=== PATIENT | female | born 2005 ===

== ENCOUNTER 2025-04-09 09:59 | Outpatient (AMB) | payer MEDICAID, SELFPAY ==
[2025-04-09 10:18] VITALS: BP 112/68; PULSE 101; RESP 20; TEMP 36.5; O2SAT 97; BMI 23.3
--- NOTE | 2025-04-09 10:18 | OBCLNT_ITS ---
Vital Signs 04/09/25 10:18 Height 1.6 m Height Method Stated Weight 59.931 kg Weight Measurement Method Standing Scale BMI 23.3 BP 112/68 Blood Pressure Source Automatic Cuff Blood Pressure Location Left Upper Arm Position Sitting Respiration 20 Pulse 101 H Pulse Source Monitor Temp 97.7 F Temp Source Oral Pulse Oximetry (%) 97 Oxygen Delivery Method Room Air Allergies/Home Meds Allergies & Medications Allergies No Known Allergies Allergy (Verified 04/09/25 10:20) Medication Reconciliation No Known Home Medications 04/09/25 [History Confirmed 04/09/25] Intake Visit Data Collection New Patient or Established: New Patient (never been to [facility]) Reason for Visit:: Transfer of care, unsure last menstrual period Seen by Clinical Staff ONLY (RN/MA): No Filter Tank Tender Helper Head Required: No Do You Feel Safe at Home: Yes Authorities Contacted: N/A PCP or OBGYN visit in last 3 months: Yes Hx Now: Yes Are you currently on any form of Control: No Pain Present Currently: No Pain Scale Used: Tripp-Baires/Numerical Pain scale:: 0 Smoking Status Smoking Status: Never smoker Questionnaires Covid-19 Vaccine Questionnaire Has patient been vacinated for Covid-19 Have you been vacinated for Covid-19: Yes PHQ-9 PHQ-2 Over the last 2 weeks, how often have you been bothered by any of the following problems? 1. Little interest or pleasure in doing things: not at all 2. Feeling down, depressed, or hopeless: not at all Total score: 0 PHQ-9 3. Trouble falling or staying asleep, or sleeping too much: Not at all 4. Feeling tired or having little energy: Not at all 5. Poor appetite or overeating: Not at all 6. Feeling bad about yourself - or that you are a failure or have let yourself or your family down: Not at all 7. Trouble concentrating on things, such as reading the newspaper or watching television: Not at all 8. Moving or speaking so slowly that other people could have noticed? - Or the opposite - being so fidgety or restless that you have been moving around a lot more than usual: not at all 9. Thoughts that you would be better off or of hurting yourself in some way: Not at all Total score: 0 Source: Developed by Drs. David Ware, Jana Christensen, Krish King and colleagues, with an educational kerrie from [employer]. Depression screen completed yes Social History Living Situation History Marital Status: Single Lives With: Family Housing: Apartment Tobacco History Smoking Status: Never smoker Second Hand Smoke Exposure: No Alcohol History Alcohol Intake: Never Domestic Abuse History Do You Feel Safe at Home: Yes History of Present Illness HPI Narrative Daniella Richey is a 19-year-old female transferring care from [facility] for ongoing care. She reports an unsure last menstrual period and is currently with a female fetus. The patient's is progressing without significant complications. She denies experiencing any contractions but mentions having [place] Urena contractions that resolve with position changes. Her previous resulted in a full-term vaginal delivery at 38 weeks without any reported problems. An ultrasound performed during the visit revealed that the fetus is in a breech presentation. The patient was informed about the implications of this finding, including the potential need for a section if the fetus remains in this position. She was advised that a repeat ultrasound would be performed at 39 weeks to reassess position. The patient reports no other specific complaints or concerns related to her at this time. She appears to be adhering to her care regimen, including taking vitamins. Obstetric History - GTPAL: A1 L1 - Current : - Estimated due date: May 30, 2025 (per Dr. Maciel) - Fetus measuring approximately 1 week ahead of dates - Breech presentation noted on current ultrasound - history: - Previous vaginal delivery at 38 weeks gestation, no reported complications Surgical History - Vaginal delivery (previous ) Medications and Supplements - vitamins Immunizations - Rubella: Patient is reported as immune Social History - Obstetric History: , history of one miscarriage and one previous vaginal delivery Review of Systems Musculoskeletal: Positive for [place] Urena contractions that resolve with position change. OB Ultrasound OB Ultrasound Ultrasound technique: transabdominal OB Initial Visit OB Flowsheet OB Flowsheet Initial Weight: Not Recorded Date -?-?-?-?-?-?-?-?-?-?-?-?- EGA Weight BP Alb Glu CTX Pres Fundal ht FHR Mov Dilation Station Effacement Hx Notes Visit Note 04/09/25 -?-?-?-?-?-?-?-?-?-?-?-?- 32w 5d 59.931 kg 112/68 Daniella Richey, 19 y/o , presents for transfer of care at ~35 weeks gestation. LMP is uncertain; [facility] 05/30/2025 per philomena or US. progressing without major complications. Reports [place] Urena contractions that resolve with position change. movement reassuring. Prior was a full-term vaginal delivery at 38 weeks. Current ultrasound confirms breech presentation (footling), and fetus is measuring about 1 week ahead. No contractions or other concerns today. Labs notable for mild anemia and asymptomatic bacteriuria. Maternity 21 negative for aneuploidy; fetus is female. Plan: Schedule for 39 weeks Repeat ultrasound on admission to confir m position If spontaneous version occurs, consider vaginal delivery ECV not recommended; discussed risks/michelle efits with patient Continue vitamins Reassess mild anemia (Hgb 10.7) at next visit Review urine culture sensitivity for coa gulase-negative staph; determine treatment need based on colony count and symptoms Follow up in 2 weeks for continued monit oring and pre-op planning Daniella Richey, 19 y/o 1, presents for transfer of care at ~32 weeks gestation. LMP is uncertain; [facility] 05/30/2025 per prior US. progressing without major complications. Reports [place] Urena contractions that resolve with position change. movement reassuring. Prior was a full-term vaginal delivery at 38 weeks. Current ultrasound confirms breech presentation (footling), and fetus is measuring about 1 week ahead. No contractions or other concerns today. Labs notable for mild anemia and asymptomatic bacteriuria. Maternity 21 negative for aneuploidy; fetus is female. Plan: Schedule for 39 weeks Repeat ultrasound on admission to confir m position If spontaneous version occurs, consider vaginal delivery ECV not recommended; discussed risks/michelle efits with patient Continue vitamins Reassess mild anemia (Hgb 10.7) at next visit Review urine culture sensitivity for coa gulase-negative staph; determine treatment need based on colony count and symptoms Follow up in 2 weeks for continued monitoring and pre-op bal nning Menstrual History Menstrual reliability: approximate (month known) Flow: normal Menstrual regularity: regular Monthly: Yes Age at menarche: 10 On control pills at conception: No Associated symptoms (LMP): Reports breast tenderness OB History : 2 Para: 1 # of Living Children: 1 Delivery History 1st : Child's name: BUTCH date: 08/06/23 sex: male Delivery type: vaginal Delivery complications: NONE History of depression before or after : No Infection History & Risk Evaluation History of STDs: none Genetic Screening & History Genetic Screening/Teratology Counseling - Includes patient, baby's father, or anyone in either family with: 1. Patient's age 35 years or older as of estimated date of delivery: No 2. Thalassemia (Wolof, Austrian, Mediterranean, or Background); MCV less than 80: No 3. Neural Tube Defect (Meningomyelocele, Spina Bifida, or Anencephaly): No 4. Congenital Heart Defect: No 5. Down Syndrome: No 6. Jett-Sachs (Ashkenazi Yarsanism, Cajun, Icelandic Snook): No 7. Kacey Disease (Ashkenazi Yarsanism): No 8. Familial Dysautonomia (Ashkenazi Yarsanism): No 9. Sickle Cell Disease or Trait (): No 10. Hemophilia or other blood disorders: No 11. Muscular Dystrophy: No 12. Cystic Fibrosis: No 13. Bollinger's Chorea: No 14. Mental Retardation/Autism: No 15. Other inherited genetic or chromosomal disorder: No 16. Maternal Metabolic Disorder (EG,TYPE 1 Diabetes, PKU): No 17. Patient or baby's father had a child with defects not listed above: No 18. Recurrent loss or a stillbirth: No 19. Medications (including supplements, vitamins, herbs or otc drugs)/illicit/recreational drugs/alcohol since last menstrual period: No 20. Any other: No Infection History 1. Live with someone with TB or exposed to TB: No 2. Rash or viral illness since last menstrual period: No 3. Hepatitis B,C: No Other (see comments) Source: [employer] Exam Narrative Physical exam: Abdomen: Ultrasound performed. Fetus visualized with foot at the bottom, knees visible, and hand identified. position consistent with breech presentation. Results Objective Laboratory: Laboratory, Imaging, and Diagnostic Test Results - Date: 04/01/2025 - Urine culture: Coagulase-negative staphylococcus (with sensitivity list) - Urinalysis: 3+ WBC esters, negative nitrites - CBC: Hemoglobin 10.7 g/dL, Hematocrit 33.3%, Platelets 307,000 - Gonorrhea and chlamydia: Negative - RPR: Non-reactive - 1-hour glucose tolerance test: 111 mg/dL - SMA testing: Negative - Cystic fibrosis genetic screening: Negative - Maternity 21: Negative for trisomy 21, 18, 13 - gender: Female - fraction: 23% - Rubella: Immune - Hemoglobin A1c: 5.0% - Blood group: O-positive - Hepatitis B: Negative - Hepatitis C: Negative - Ultrasound (current visit): - position: Breech (foot at bottom, knees visible, hand visible) Office Procedures OB Clinic LOC & Office Proc's Nursing/Assessment Patient Status: Initial/New Patient OB Clinic Nursing Assessment: Medication Reconciliation, Update PMH in EMR and Vital Signs OB Clinic Coordination of Care: Complex Care and Chronic Disease 1-5, Consent,records obtained, informed consent, Education Simp Pt/Fam, Lab and Imaging orders, Results/Orders obtained and Staff clarify orders Special Needs: Heart tones Miscellaneous Interventions: Blood/Urine Collection New Patient Charge New Patient Point Assignment: [id number] New Patient Point Charge: AUTOMOTIVE PRODUCTION WORKER Level 5 ([id number]) Bedside Ultrasounds US Transabdominal <14 weeks at bedside: Yes Assessment & Plan Diagnosis / Problem List (1) Supervision of high risk , unspecified, third trimester: Status: Acute (2) Breech position of fetus: Status: Acute Plan Daniella Richey, 19-year-old , transferring care at approximately 35 weeks gestation with breech presentation. Breech presentation at term Assessment: Ultrasound examination during the visit confirmed breech presentation with the fetus in a bottom-down position. The patient reports no significant contractions or issues, only occasional [place] Urena contractions that resolve with position changes. Previous resulted in a full-term vaginal delivery at 38 weeks without complications. Plan: - Schedule at 39 weeks gestation - Perform repeat ultrasound on admission for to confirm presentation - If spontaneous version occurs, proceed with vaginal delivery - Discuss risks, benefits, and alternatives of external cephalic version (ECV) with patient - ECV not recommended due to associated risks - Follow up in 2 weeks Anemia Assessment: Recent CBC shows hemoglobin of 10.7 g/dL and hematocrit of 33.3%, in dicating mild anemia. Plan: - Continue vitamins - Reassess at next visit Asymptomatic bacteriuria Assessment: Urine culture from 04/01/2025 positive for coagulase-negative staphylococcus. Urinalysis showed 3+ WBC esterase but negative nitrites. Plan: - Review antibiotic sensitivity results - Determine need for treatment based on colony count and symptoms - Follow up on urine culture results at next visit
[2025-04-09 16:09] LABS: Bilirubin,Urine Clinitek Negative (Negative); Blood,Urine Clinitek Negative (Negative); Glucose, Urine Clinitek Negative (Negative); Ketones,Urine Clinitek Negative (Negative); Leukocyte Esterase,Urine Clin 1+ (Negative); Nitrite,Urine Clinitek Negative (Negative); Protein,Urine Clinitek Trace (Neg - Trace); Specific Gravity,Urine Clin 1.025 (1.001-1.030)
== END 2025-04-09 10:36 | disposition home or self-care (01) ==
LOC: HODSOBC 09:59
PROVIDERS: Advanced Practice Midwife; Supervising Provider Obstetrics & Gynecology; Visit Provider Obstetrics & Gynecology
DX: O09.893 Supervision of other high risk pregnancies, third trimester (principal); Z3A.32 32 weeks gestation of pregnancy; O32.8XX0 Maternal care for other malpresentation of fetus, not applicable or unspecified; O09.293 Supervision of pregnancy with other poor reproductive or obstetric history, third trimester; O99.013 Anemia complicating pregnancy, third trimester; O47.03 False labor before 37 completed weeks of gestation, third trimester
CPT/HCPCS: 76801; 81001; 99205; G0463

== ENCOUNTER 2025-04-24 10:02 | Outpatient (AMB) | payer MEDICAID, SELFPAY ==
[2025-04-24 10:39] VITALS: BP 101/62; PULSE 91; RESP 18; TEMP 36.6; O2SAT 98; BMI 23.9
--- NOTE | 2025-04-24 10:39 | OBCLNT_ITS ---
Vital Signs 04/24/25 10:39 Height 1.6 m Height Method Stated Weight 61.348 kg Weight Measurement Method Standing Scale BMI 23.9 BP 101/62 Blood Pressure Source Automatic Cuff Blood Pressure Location Right Upper Arm Position Sitting Respiration 18 Pulse 91 Pulse Source Monitor Temp 97.9 F Temp Source Oral Pulse Oximetry (%) 98 Oxygen Delivery Method Room Air Allergies/Home Meds Allergies & Medications Allergies No Known Allergies Allergy (Verified 04/24/25 10:42) Medication Reconciliation No Known Home Medications 04/09/25 [History Confirmed 04/24/25] Intake Visit Data Collection New Patient or Established: Established Patient (seen at [facility] within 3 years) Reason for Visit:: CARE Seen by Clinical Staff ONLY (RN/MA): No Video Effects Editor Required: No Do You Feel Safe at Home: Yes Authorities Contacted: N/A PCP or OBGYN visit in last 3 months: Yes Hx Now: Yes Are you currently on any form of Control: No Pain Present Currently: Yes Pain Location: Abdomen Pain Scale Used: Tripp-Baires/Numerical Pain scale:: 4 Smoking Status Smoking Status: Never smoker Questionnaires Covid-19 Vaccine Questionnaire Has patient been vacinated for Covid-19 Have you been vacinated for Covid-19: Yes PHQ-9 PHQ-2 Over the last 2 weeks, how often have you been bothered by any of the following problems? 1. Little interest or pleasure in doing things: not at all 2. Feeling down, depressed, or hopeless: not at all Total score: 0 PHQ-9 3. Trouble falling or staying asleep, or sleeping too much: Not at all 4. Feeling tired or having little energy: Not at all 5. Poor appetite or overeating: Not at all 6. Feeling bad about yourself - or that you are a failure or have let yourself or your family down: Not at all 7. Trouble concentrating on things, such as reading the newspaper or watching television: Not at all 8. Moving or speaking so slowly that other people could have noticed? - Or the opposite - being so fidgety or restless that you have been moving around a lot more than usual: not at all 9. Thoughts that you would be better off or of hurting yourself in some way: Not at all Total score: 0 Source: Developed by Drs. David Ware, Jana Christensen, Krish King and colleagues, with an educational kerrie from [employer]. Depression screen completed yes Social History Living Situation History Lives With: Family Housing: Apartment Tobacco History Smoking Status: Never smoker Second Hand Smoke Exposure: No Alcohol History Alcohol Intake: Never Domestic Abuse History Do You Feel Safe at Home: Yes Care OB Visit Log OB Flowsheet Initial Weight: Not Recorded Date -?-?-?-?-?-?-?-?-?-?-?-?- EGA Weight BP Alb Glu CTX Pres Fundal ht FHR Mov Dilation Station Effacement Hx Notes Visit Note 04/09/25 -?-?-?-?-?-?-?-?-?-?-?-?- 32w 5d 59.931 kg 112/68 Daniella Richey, 19 y/o , presents for transfer of care at ~35 weeks gestation. LMP is uncertain; [facility] 05/30/2025 per prior US. progressing without major complications. Reports [place] Urena contractions that resolve with position change. movement reassuring. Prior was a full-term vaginal delivery at 38 weeks. Current ultrasound confirms breech presentation (footling), and fetus is measuring about 1 week ahead. No contractions or other concerns today. Labs notable for mild anemia and asymptomatic bacteriuria. Maternity 21 negative for aneuploidy; fetus is female. Plan: Schedule for 39 weeks Repeat ultrasound on admission to confir m position If spontaneous version occurs, consider vaginal delivery ECV not recommended; discussed risks/michelle efits with patient Continue vitamins Reassess mild anemia (Hgb 10.7) at next visit Review urine culture sensitivity for coa gulase-negative staph; determine treatment need based on colony count and symptoms Follow up in 2 weeks for continued monit oring and pre-op planning Daniella Richey, 19 y/o 1, presents for transfer of care at ~32 weeks gestation. LMP is uncertain; [facility] 05/30/2025 per prior US. progressing without major complications. Reports [place] Urena contractions that resolve with position change. movement reassuring. Prior was a full-term vaginal delivery at 38 weeks. Current ultrasound confirms breech presentation (footling), and fetus is measuring about 1 week ahead. No contractions or other concerns today. Labs notable for mild anemia and asymptomatic bacteriuria. Maternity 21 negative for aneuploidy; fetus is female. Plan: Schedule for 39 weeks Repeat ultrasound on admission to confir m position If spontaneous version occurs, consider vaginal delivery ECV not recommended; discussed risks/michelle efits with patient Continue vitamins Reassess mild anemia (Hgb 10.7) at next visit Review urine culture sensitivity for coa gulase-negative staph; determine treatment need based on colony count and symptoms Follow up in 2 weeks for continued monitoring and pre-op bal nning 04/24/25 -?-?-?-?-?-?-?-?-?-?-?-?- 34w 6d 61.348 kg 101/62 absent breech 34 135 active fetus active. denies PTL complaints, no leaking or bleeding discuss breech exercise, ptl precaution reviewed, increase fluid,continue pnv, rtc 1 week with OB [facility] Calculator Estimated Delivery Date Method Current WG Current Estimate 05/30/25 LMP (Uncertain) 34w 6d Notes Visit Date: 04/24/25 Last Updated by: Anna Ellis, BRENT O+,abs-, rpr;;Nr, rub imm, hbsag-,hiv-,GC/CT-. UT-, AFP/NIPT,carrier screen-. 3rd tri labs wnl Office Procedures OB Clinic LOC & Office Proc's Nursing/Assessment Patient Status: Established Patient OB Clinic Nursing Assessment: Medication Reconciliation, Update PMH in EMR and Vital Signs OB Clinic Coordination of Care: Complex Care and Chronic Disease 1-5, Consent,records obtained, informed consent, Education Simp Pt/Fam, Lab and Imaging orders, Results/Orders obtained and Staff clarify orders Special Needs: Heart tones Established Patient Charge Established Patient Point Assignment: 135 Established Patient Point Charge: EP Level 4 (120-155) Assessment & Plan Diagnosis / Problem List (1) Supervision of high risk , unspecified, third trimester: Status: Acute (2) Breech position of fetus: Status: Acute Plan discuss breech exercise; review ptl ptrcaution, increase fluid, continue PNV, d iscuss ER precaution, rtc 2 week with OB Additional Plan Follow Up: 2 Weeks (obc)
== END 2025-04-24 10:59 | disposition home or self-care (01) ==
LOC: HODSOBC 10:02
PROVIDERS: Supervising Provider Advanced Practice Midwife; Visit Provider Advanced Practice Midwife
DX: O09.893 Supervision of other high risk pregnancies, third trimester (principal); Z3A.34 34 weeks gestation of pregnancy; O32.8XX0 Maternal care for other malpresentation of fetus, not applicable or unspecified
CPT/HCPCS: 99214; G0463

== ENCOUNTER 2025-05-02 09:47 | Outpatient (AMB) | payer MEDICAID, SELFPAY ==
[2025-05-02 10:08] VITALS: BP 108/68; PULSE 91; RESP 18; TEMP 36.6; O2SAT 97; BMI 24.1
--- NOTE | 2025-05-02 10:08 | OBCLNT_ITS ---
Vital Signs 05/02/25 10:08 Height 1.6 m Height Method Stated Weight 61.859 kg Weight Measurement Method Standing Scale BMI 24.1 BP 108/68 Blood Pressure Source Automatic Cuff Blood Pressure Location Right Upper Arm Position Sitting Respiration 18 Pulse 91 Pulse Source Monitor Temp 97.9 F Temp Source Oral Pulse Oximetry (%) 97 Oxygen Delivery Method Room Air Allergies/Home Meds Allergies & Medications Allergies No Known Allergies Allergy (Verified 05/02/25 10:09) Medication Reconciliation No Known Home Medications 04/09/25 [History Confirmed 05/02/25] Intake Visit Data Collection New Patient or Established: Established Patient (seen at [facility] within 3 years) Reason for Visit:: CARE Seen by Clinical Staff ONLY (RN/MA): No Photography Intern Required: No Do You Feel Safe at Home: Yes Authorities Contacted: N/A PCP or OBGYN visit in last 3 months: Yes Hx Now: Yes Are you currently on any form of Control: No Pain Present Currently: No Pain Scale Used: Tripp-Baires/Numerical Pain scale:: 0 Smoking Status Smoking Status: Never smoker Questionnaires Covid-19 Vaccine Questionnaire Has patient been vacinated for Covid-19 Have you been vacinated for Covid-19: Yes PHQ-9 PHQ-2 Over the last 2 weeks, how often have you been bothered by any of the following problems? 1. Little interest or pleasure in doing things: not at all 2. Feeling down, depressed, or hopeless: not at all Total score: 0 PHQ-9 3. Trouble falling or staying asleep, or sleeping too much: Not at all 4. Feeling tired or having little energy: Not at all 5. Poor appetite or overeating: Not at all 6. Feeling bad about yourself - or that you are a failure or have let yourself or your family down: Not at all 7. Trouble concentrating on things, such as reading the newspaper or watching television: Not at all 8. Moving or speaking so slowly that other people could have noticed? - Or the opposite - being so fidgety or restless that you have been moving around a lot more than usual: not at all 9. Thoughts that you would be better off or of hurting yourself in some way: Not at all Total score: 0 Source: Developed by Drs. David Ware, Jana Christensen, Krish King and colleagues, with an educational kerrie from [employer]. Depression screen completed yes Social History Living Situation History Lives With: Family Housing: Apartment Tobacco History Smoking Status: Never smoker Second Hand Smoke Exposure: No Alcohol History Alcohol Intake: Never Domestic Abuse History Do You Feel Safe at Home: Yes Care OB Visit Log OB Flowsheet Initial Weight: Not Recorded Date -?-?-?-?-?-?-?-?-?-?-?-?- EGA Weight BP Alb Glu CTX Pres Fundal ht FHR Mov Dilation Station Effacement Hx Notes Visit Note 04/09/25 -?-?-?-?-?-?-?-?-?-?-?-?- 32w 5d 59.931 kg 112/68 Daniella Richey, 19 y/o , presents for transfer of care at ~35 weeks gestation. LMP is uncertain; [facility] 05/30/2025 per prior US. progressing without major complications. Reports [place] Urena contractions that resolve with position change. movement reassuring. Prior was a full-term vaginal delivery at 38 weeks. Current ultrasound confirms breech presentation (footling), and fetus is measuring about 1 week ahead. No contractions or other concerns today. Labs notable for mild anemia and asymptomatic bacteriuria. Maternity 21 negative for aneuploidy; fetus is female. Plan: Schedule for 39 weeks Repeat ultrasound on admission to confir m position If spontaneous version occurs, consider vaginal delivery ECV not recommended; discussed risks/michelle efits with patient Continue vitamins Reassess mild anemia (Hgb 10.7) at next visit Review urine culture sensitivity for coa gulase-negative staph; determine treatment need based on colony count and symptoms Follow up in 2 weeks for continued monit oring and pre-op planning Daniella Richey, 19 y/o 1, presents for transfer of care at ~32 weeks gestation. LMP is uncertain; [facility] 05/30/2025 per prior US. progressing without major complications. Reports [place] Urena contractions that resolve with position change. movement reassuring. Prior was a full-term vaginal delivery at 38 weeks. Current ultrasound confirms breech presentation (footling), and fetus is measuring about 1 week ahead. No contractions or other concerns today. Labs notable for mild anemia and asymptomatic bacteriuria. Maternity 21 negative for aneuploidy; fetus is female. Plan: Schedule for 39 weeks Repeat ultrasound on admission to confir m position If spontaneous version occurs, consider vaginal delivery ECV not recommended; discussed risks/michelle efits with patient Continue vitamins Reassess mild anemia (Hgb 10.7) at next visit Review urine culture sensitivity for coa gulase-negative staph; determine treatment need based on colony count and symptoms Follow up in 2 weeks for continued monitoring and pre-op bal nning 04/24/25 -?-?-?-?-?-?-?-?-?-?-?-?- 34w 6d 61.348 kg 101/62 absent breech 34 135 active fetus active. denies PTL complaints, no leaking or bleeding discuss breech exercise, ptl precaution reviewed, increase fluid,continue pnv, rtc 1 week with OB 05/02/25 -?-?-?-?-?-?-?-?-?-?-?-?- 36w 0d 61.859 kg 108/68 absent cephalic 35 133 active increased FM, denies LOF, vag bleeding, no cramps tod ay vertex on scan, continue breech exercise, hydrate, ptl precaution, fkc bid, GBS today,rtc 1 week [facility] Calculator Estimated Delivery Date Method Current WG Current Estimate 05/30/25 LMP (Uncertain) 36w 0d Notes Visit Date: 04/24/25 Last Updated by: Anna Ellis CNM O+,abs-, rpr;;Nr, rub imm, hbsag-,hiv-,GC/CT-. UT-, AFP/NIPT,carrier screen-. 3rd tri labs wnl Office Procedures OB Clinic LOC & Office Proc's Nursing/Assessment Patient Status: Established Patient OB Clinic Nursing Assessment: Medication Reconciliation, Update PMH in EMR and Vital Signs OB Clinic Coordination of Care: Complex Care and Chronic Disease 1-5, Consent,records obtained, informed consent, Education Simp Pt/Fam, Lab and Imaging orders, Results/Orders obtained and Staff clarify orders Special Needs: Heart tones Established Patient Charge Established Patient Point Assignment: 135 Established Patient Point Charge: EP Level 4 (120-155) Assessment & Plan Diagnosis / Problem List (1) Supervision of high risk , unspecified, third trimester: Status: Acute Plan GBS today. discuss labor precaution, fkc bid, hydrate. f/u MFM sono 05/30/25rtc 1 week obc Additional Plan Follow Up: 1 Week (obc)
== END 2025-05-02 11:22 | disposition home or self-care (01) ==
LOC: HODSOBC 09:47
PROVIDERS: Supervising Provider Advanced Practice Midwife; Visit Provider Advanced Practice Midwife
DX: O09.93 Supervision of high risk pregnancy, unspecified, third trimester (principal); Z3A.36 36 weeks gestation of pregnancy; Z36.85 Encounter for antenatal screening for Streptococcus B
CPT/HCPCS: 99214; G0463

== ENCOUNTER 2025-05-09 10:42 | Outpatient (AMB) | payer MEDICAID, SELFPAY ==
[2025-05-09 11:26] VITALS: BP 112/71; PULSE 110; RESP 19; TEMP 36.6; O2SAT 98; BMI 24.8
--- NOTE | 2025-05-09 11:26 | OBCLNT_ITS ---
Vital Signs 05/09/25 11:26 Height 1.6 m Height Method Stated Weight 63.56 kg Weight Measurement Method Standing Scale BMI 24.8 BP 112/71 Blood Pressure Source Automatic Cuff Blood Pressure Location Right Upper Arm Position Sitting Respiration 19 Pulse 110 H Pulse Source Monitor Temp 97.8 F Temp Source Temporal Artery Scan Pulse Oximetry (%) 98 Oxygen Delivery Method Room Air Allergies/Home Meds Allergies & Medications Allergies No Known Allergies Allergy (Verified 05/02/25 10:09) Intake Visit Data Collection New Patient or Established: Established Patient (seen at [facility] within 3 years) Reason for Visit:: FOLLOW UP OBC Do You Feel Safe at Home: Yes Authorities Contacted: N/A PCP or OBGYN visit in last 3 months: Yes Date of Last PCP or OBGYN visit: 05/02/25 Hx Now: Yes Are you currently on any form of Control: No Pain Present Currently: No Smoking Status Smoking Status: Never smoker Questionnaires PHQ-9 PHQ-2 Over the last 2 weeks, how often have you been bothered by any of the following problems? 1. Little interest or pleasure in doing things: not at all PHQ-9 8. Moving or speaking so slowly that other people could have noticed? - Or the opposite - being so fidgety or restless that you have been moving around a lot more than usual: not at all Source: Developed by Drs. David Ware, Jana Christensen, rKish King and colleagues, with an educational kerrie from [employer]. Social History Living Situation History Lives With: Family Housing: Apartment Tobacco History Smoking Status: Never smoker Second Hand Smoke Exposure: No Alcohol History Alcohol Intake: Never Domestic Abuse History Do You Feel Safe at Home: Yes Care OB Visit Log OB Flowsheet Initial Weight: Not Recorded Date -?-?-?-?-?-?-?-?-?-?-?-?- EGA Weight BP Alb Glu CTX Pres Fundal ht FHR Mov Dilation Station Effacement Hx Notes Visit Note 04/09/25 -?-?-?-?-?-?-?-?-?-?-?-?- 32w 5d 59.931 kg 112/68 Daniella Richey, 19 y/o , presents for transfer of care at ~35 weeks gestation. LMP is uncertain; [facility] 05/30/2025 per prior US. progressing without major complications. Reports [place] Urena contractions that resolve with position change. movement reassuring. Prior was a full-term vaginal delivery at 38 weeks. Current ultrasound confirms breech presentation (footling), and fetus is measuring about 1 week ahead. No contractions or other concerns today. Labs notable for mild anemia and asymptomatic bacteriuria. Maternity 21 negative for aneuploidy; fetus is female. Plan: Schedule for 39 weeks Repeat ultrasound on admission to confir m position If spontaneous version occurs, consider vaginal delivery ECV not recommended; discussed risks/michelle efits with patient Continue vitamins Reassess mild anemia (Hgb 10.7) at next visit Review urine culture sensitivity for coa gulase-negative staph; determine treatment need based on colony count and symptoms Follow up in 2 weeks for continued monit oring and pre-op planning Daniella Richey, 19 y/o 1, presents for transfer of care at ~32 weeks gestation. LMP is uncertain; [facility] 05/30/2025 per prior US. progressing without major complications. Reports Ivan Urena contractions that resolve with position change. movement reassuring. Prior was a full-term vaginal delivery at 38 weeks. Current ultrasound confirms breech presentation (footling), and fetus is measuring about 1 week ahead. No contractions or other concerns today. Labs notable for mild anemia and asymptomatic bacteriuria. Maternity 21 negative for aneuploidy; fetus is female. Plan: Schedule for 39 weeks Repeat ultrasound on admission to confir m position If spontaneous version occurs, consider vaginal delivery ECV not recommended; discussed risks/michelle efits with patient Continue vitamins Reassess mild anemia (Hgb 10.7) at next visit Review urine culture sensitivity for coa gulase-negative staph; determine tr eatment need based on colony count and symptoms Follow up in 2 weeks for continued monitoring and pre-op bal nning 04/24/25 -?-?-?-?-?-?-?-?-?-?-?-?- 34w 6d 61.348 kg 101/62 absent breech 34 135 active fetus active. denies PTL complaints, no leaking or bleeding discuss breech exercise, ptl precaution reviewed, increase fluid,continue pnv, rtc 1 week with OB 05/02/25 -?-?-?-?-?-?-?-?-?-?-?-?- 36w 0d 61.859 kg 108/68 absent cephalic 35 133 active increased FM, denies LOF, vag bleeding, no cramps tod ay vertex on scan, continue breech exercise, hydrate, ptl precaution, fkc bid, GBS today,rtc 1 week 05/09/25 -?-?-?-?-?-?-?-?-?-?-?-?- 37w 0d 63.56 kg 112/71 absent cephalic 36 140 active reports good movement, denies leaking or vaginal bleeding, occ uc, lost mucous plug discuss labor precaution, fkc bid, comfort measure for early labor. discuss ER precaution., rtc 1 week, GBS result pending [facility] Calculator Estimated Delivery Date Method Current WG Current Estimate 05/30/25 LMP (Uncertain) 37w 0d Notes Visit Date: 05/09/25 Last Updated by: Anna Ellis CNM GBS- Visit Date: 04/24/25 Last Updated by: Anna Ellis CNM O+,abs-, rpr;;Nr, rub imm, hbsag-,hiv-,GC/CT-. UT-, AFP/NIPT,carrier screen-. 3rd tri labs wnl Office Procedures OB Clinic LOC & Office Proc's Nursing/Assessment Patient Status: Established Patient OB Clinic Nursing Assessment: BP Monitoring, Medication Reconciliation, Update PMH in EMR and Vital Signs OB Clinic Coordination of Care: Complex Care and Chronic Disease 1-5, Consent,records obtained, informed consent, Lab and Imaging orders and Results/Orders obtained Special Needs: Heart tones Established Patient Charge Established Patient Point Assignment: 125 Established Patient Point Charge: EP Level 4 (120-155) Assessment & Plan Diagnosis / Problem List (1) Supervision of high risk , unspecified, third trimester: Status: Acute Plan GBS- discuss labor precaution, fkc bid. comfort measure, increase fluid. obc 1 week Additional Plan Follow Up: 1 Week (obc)
== END 2025-05-09 12:05 | disposition home or self-care (01) ==
LOC: HODSOBC 10:42
PROVIDERS: PCP Advanced Practice Midwife; Referring Provider Advanced Practice Midwife; Supervising Provider Advanced Practice Midwife; Visit Provider Advanced Practice Midwife
DX: O09.93 Supervision of high risk pregnancy, unspecified, third trimester (principal); Z3A.37 37 weeks gestation of pregnancy
CPT/HCPCS: 99214; G0463

== ENCOUNTER 2025-05-16 09:16 | Outpatient (AMB) | payer MEDICAID, SELFPAY ==
[2025-05-16 10:03] VITALS: BP 104/61; PULSE 83; RESP 18; TEMP 36; O2SAT 98; BMI 25.4
--- NOTE | 2025-05-16 10:03 | OBCLNT_ITS ---
Vital Signs 05/16/25 10:03 Height 1.6 m Height Method Stated Weight 65.034 kg Weight Measurement Method Standing Scale BMI 25.4 BP 104/61 Blood Pressure Source Automatic Cuff Blood Pressure Location Left Upper Arm Position Sitting Respiration 18 Pulse 83 Pulse Source Monitor Temp 96.8 F Temp Source Oral Pulse Oximetry (%) 98 Oxygen Delivery Method Room Air Allergies/Home Meds Allergies & Medications Allergies No Known Allergies Allergy (Verified 05/16/25 10:08) Medication Reconciliation No Known Home Medications 04/09/25 [History Confirmed 05/16/25] Intake Visit Data Collection New Patient or Established: Established Patient (seen at [facility] within 3 years) Reason for Visit:: OBC Seen by Clinical Staff ONLY (RN/MA): No Electric Vehicle Electrician Required: No Do You Feel Safe at Home: Yes Authorities Contacted: N/A PCP or OBGYN visit in last 3 months: Yes Date of Last PCP or OBGYN visit: 05/09/25 Hx Now: Yes Are you currently on any form of Control: No Pain Present Currently: No Pain Scale Used: Tripp-Baires/Numerical Pain scale:: 0 Smoking Status Smoking Status: Never smoker Questionnaires Covid-19 Vaccine Questionnaire Has patient been vacinated for Covid-19 Have you been vacinated for Covid-19: Yes PHQ-9 PHQ-2 Over the last 2 weeks, how often have you been bothered by any of the following problems? 1. Little interest or pleasure in doing things: not at all 2. Feeling down, depressed, or hopeless: not at all Total score: 0 PHQ-9 3. Trouble falling or staying asleep, or sleeping too much: Not at all 4. Feeling tired or having little energy: Not at all 5. Poor appetite or overeating: Not at all 6. Feeling bad about yourself - or that you are a failure or have let yourself or your family down: Not at all 7. Trouble concentrating on things, such as reading the newspaper or watching television: Not at all 8. Moving or speaking so slowly that other people could have noticed? - Or the opposite - being so fidgety or restless that you have been moving around a lot more than usual: not at all 9. Thoughts that you would be better off or of hurting yourself in some way: Not at all Total score: 0 If you checked off any problems, how difficult have these problems made it for you to do your work, take care of things at home, or get along with other people?: not difficult at all Source: Developed by Drs. David Ware, Jana Christensen, Krish King and colleagues, with an educational kerrie from [employer]. Depression screen completed yes Social History Living Situation History Lives With: Family Housing: Apartment Tobacco History Smoking Status: Never smoker Second Hand Smoke Exposure: No Alcohol History Alcohol Intake: Never Domestic Abuse History Do You Feel Safe at Home: Yes Care OB Visit Log OB Flowsheet Initial Weight: Not Recorded Date -?-?-?-?-?-?-?-?-?-?-?-?- EGA Weight BP Alb Glu CTX Pres Fundal ht FHR Mov Dilation Station Effacement Hx Notes Visit Note 04/09/25 -?-?-?-?-?-?-?-?-?-?-?-?- 32w 5d 59.931 kg 112/68 Daniella Richey, 19 y/o , presents for transfer of care at ~35 weeks gestation. LMP is uncertain; [facility] 05/30/2025 per prior US. progressing without major complications. Reports [place] Urena contractions that resolve with position change. movement reassuring. Prior was a full-term vaginal delivery at 38 weeks. Current ultrasound confirms breech presentation (footling), and fetus is measuring about 1 week ahead. No contractions or other concerns today. Labs notable for mild anemia and asymptomatic bacteriuria. Maternity 21 negative for aneuploidy; fetus is female. Plan: Schedule for 39 weeks Repeat ultrasound on admission to confir m position If spontaneous version occurs, consider vaginal delivery ECV not recommended; discussed risks/michelle efits with patient Continue vitamins Reassess mild anemia (Hgb 10.7) at next visit Review urine culture sensitivity for coa gulase-negative staph; determine treatment need based on colony count and symptoms Follow up in 2 weeks for continued monit oring and pre-op planning Daniella Richey, 19 y/o 1, presents for transfer of care at ~32 weeks gestation. LMP is uncertain; [facility] 05/30/2025 per prior US. progressing without major complications. Reports Ivan Urena contractions that resolve with position change. movement reassuring. Prior was a full-term vaginal delivery at 38 weeks. Current ultrasound confirms breech presentation (footling), and fetus is measuring about 1 week ahead. No contractions or other concerns today. Labs notable for mild anemia and asymptomatic bacteriuria. Maternity 21 negative for aneuploidy; fetus is female. Plan: Schedule for 39 weeks Repeat ultrasound on admission to confir m position If spontaneous version occurs, consider vaginal delivery ECV not recommended; discussed risks/michelle efits with patient Continue vitamins Reassess mild anemia (Hgb 10.7) at next visit Review urine culture sensitivity for coa gulase-negative staph; determine treatment need based on colony count and symptoms Follow up in 2 weeks for continued monitoring and pre-op bal nning 04/24/25 -?-?-?-?-?-?-?-?-?-?-?-?- 34w 6d 61.348 kg 101/62 absent breech 34 135 active fetus active. denies PTL complaints, no leaking or bleeding discuss breech exercise, ptl precaution reviewed, increase fluid,continue pnv, rtc 1 week with OB 05/02/25 -?-?-?-?-?-?-?-?-?-?-?-?- 36w 0d 61.859 kg 108/68 absent cephalic 35 133 active increased FM, denies LOF, vag bleeding, no cramps tod ay vertex on scan, continue breech exercise, hydrate, ptl precaution, fkc bid, GBS today,rtc 1 week 05/09/25 -?-?-?-?-?-?-?-?-?-?-?-?- 37w 0d 63.56 kg 112/71 absent cephalic 36 140 active reports good movement, denies leaking or vaginal bleeding, occ uc, lost mucous plug discuss labor precaution, fkc bid, comfort measure for early labor. discuss ER precaution., rtc 1 week, GBS result pending 05/16/25 -?-?-?-?-?-?-?-?-?-?-?-?- 38w 0d 65.034 kg 104/61 absent cephalic 37 156 active fetus active. denies leaking or bleeding. patient lives in [place]. increased pressure, no leaking or bleeding discuss labor pr ecaution, fke bid, discuss ER precaution. rtc 1 week obc [facility] Calculator Estimated Delivery Date Method Current WG Current Estimate 05/30/25 LMP (Uncertain) 38w 0d Notes Visit Date: 05/09/25 Last Updated by: Anna Ellis CNM GBS- Visit Date: 04/24/25 Last Updated by: Anna Ellis CNM O+,abs-, rpr;;Nr, rub imm, hbsag-,hiv-,GC/CT-. UT-, AFP/NIPT,carrier screen-. 3rd tri labs wnl Office Procedures OB Clinic LOC & Office Proc's Nursing/Assessment Patient Status: Established Patient OB Clinic Nursing Assessment: Medication Reconciliation, Update PMH in EMR and Vital Signs OB Clinic Coordination of Care: Education Complex Pt/Fam, Consent,records obtained, informed consent, Lab and Imaging orders, Results/Orders obtained and Staff clarify orders Special Needs: Heart tones Established Patient Charge Established Patient Point Assignment: 115 Established Patient Point Charge: EP Level 3 (80-115) Assessment & Plan Diagnosis / Problem List (1) Supervision of high risk , unspecified, third trimester: Status: Acute Plan discuss labor precaution, fkc bid, discuss ER precaution . rtc 1 week obc Additional Plan Follow Up: 1 Week (obc)
== END 2025-05-16 10:23 | disposition home or self-care (01) ==
LOC: HODSOBC 09:16
PROVIDERS: PCP Advanced Practice Midwife; Referring Provider Advanced Practice Midwife; Supervising Provider Advanced Practice Midwife; Visit Provider Advanced Practice Midwife
DX: O09.93 Supervision of high risk pregnancy, unspecified, third trimester (principal); Z3A.38 38 weeks gestation of pregnancy
CPT/HCPCS: 99213; G0463